=== PATIENT | female | born 1990 | race Caucasian/White ===

== ENCOUNTER 2021-06-05 13:03 | Emergency (ER) | payer SELFPAY ==
[~2021-06-05] VITALS: Ht 160 cm; Wt 64.4 kg
[2021-06-05 13:12] VITALS: BP 138/77
--- NOTE | 2021-06-05 13:17 | NUR ---
[facility]
[2021-06-05] MEDS ORDERED: IBUP-1953 PO (13:20)
== END 2021-06-05 13:26 | disposition home or self-care (01) ==
LOC: ER 13:09
DX: R10.31 Right lower quadrant pain (principal)